=== PATIENT | female | born 1975 | race Caucasian/White ===

== ENCOUNTER 2017-12-12 22:23 | Emergency (ER) | payer OTHER ==
[2017-12-12] MEDS ORDERED: Acetaminophen/HYDROcodone 325-7.5 MG Tab PO ONE (22:52)
--- NOTE | 2017-12-12 22:58 | EDM.PDOC ---
ED HPI GENERAL MEDICAL PROBLEM - General Chief Complaint: ENT Problem Stated Complaint: PT HURT LT EAR Time Seen by Provider: 12/12/17 22:32 - History of Present Illness INITIAL COMMENTS - FREE TEXT/NARRATIVE: HISTORY AND PHYSICAL: History of present illness: The patient is a 42-year-old female who presents with sudden onset of left ear pain that started at approximately 4 PM when she felt her ear popping. The patient says she has had some sinus congestion and has been taking antihistamines for that over the last few days but she has not had a fever nausea vomiting or any ear symptomatology. The patient has a history of eustachian tube dysfunction for which she has seen Dr. Woo at [facility] but she is doing well ever since then. She has not had a sore throat cough nausea vomiting or diarrhea and no recent trauma to the ear or head. She's not had any drainage from the ear and to this evening when she noticed a scant amount of pinkish drainage from the ear starting at 9:00. She has used over-the- counter medications and says the pain is very severe. She denies any recent aggressive cleaning of the ear or any underwater activities or travel The patient says she had many ear infections as a child but none as an adult Review of systems: As per history of present illness and below otherwise all systems reviewed and negative. Past medical history: As per history of present illness and as reviewed below otherwise noncontributory. Surgical history: As per history of present illness and as reviewed below otherwise noncontributory. Social history: No reported history of drug or alcohol abuse. Family history: As per history of present illness and as reviewed below otherwise noncontributory. Physical exam: Gen.: Well-developed well-nourished female who is nontoxic and very exaggerated with exam vital signs have been noted by me HEENT: Atraumatic, normocephalic, pupils reactive, negative for conjunctival pallor or scleral icterus, mucous membranes moist, throat clear, neck supple, nontender, trachea midline. There is some bogginess to the turbinates and only clear nasal drainage but no overt sinus tenderness on palpation. The right TM is slightly dull and there is no evidence of any drainage or erythema and no fluid is appreciated. There is no mastoid tenderness bilaterally and there is no periauricular adenopathy. There is no cervical adenopathy or nuchal rigidity. The left TM is beefy red and edematous and there is no gross perforation seen but due to the significant amount of edema and bulging it is difficult to fully see the outer edges and the patient can tolerate that part of the exam. There is no drainage in external canal and no edema of the external canal. Lungs: Clear to auscultation, breath sounds equal bilaterally, chest nontender. Heart: S1S2, regular rate and rhythm no overt murmurs Abdomen: Soft, nondistended, nontender. NABS Pelvis: Deferred. Genitourinary: Deferred. Rectal: Deferred. Extremities: Atraumatic, negative for cords or calf pain. Neurovascular unremarkable. Neuro: Awake, alert, oriented. Cranial nerves II through XII unremarkable. Cerebellum unremarkable. Motor and sensory unremarkable throughout. Exam nonfocal. Diagnostics: [] Therapeutics: [place] Impression: Otitis media left, severe otalgia left rule out TM perforation Definitive disposition and diagnosis as appropriate pending reevaluation and review of above. - Related Data Allergies Allergy/AdvReac Type Severity Reaction Status Date / Time No Known Allergies Allergy Verified 12/12/17 22:27 Home Meds: Home Meds . [No Known Home Meds] 12/12/17 [History] Past Medical History - Past Health History Medical/Surgical History: Denies Medical/Surgical History Social & Family History - Family History Family Medical History: Noncontributory - Tobacco Use Smoking Status *Q: Current Every Day Smoker Years of Tobacco use: 20 Packs/Tins Daily: 1 - Recreational Drug Use Recreational Drug Use: No ED ROS GENERAL - Review of Systems Review Of Systems: ROS reveals no pertinent complaints other than HPI. ED EXAM, GENERAL - Physical Exam Exam: See Below (See dictation) Course - Vital Signs Last Recorded V/S: Last Vital Signs Temp 37.1 C 12/12/17 22:23 Pulse 83 12/12/17 22:23 Resp 18 12/12/17 22:23 BP 144/76 H 12/12/17 22:23 Pulse Ox 96 12/12/17 22:23 - Orders/Labs/Meds Meds: Medications Discontinued Medications Generic Name Dose Route Start Last Admin Trade Name Freq PRN Reason Stop Dose Admin Hydrocodone Bitart/Acetaminophen 1 tab 12/12/17 22:52 [place] 325-7.5 Mg PO 12/12/17 22:53 ONETIME ONE Departure - Departure Time of Disposition: 22:56 Disposition: Home, Self-Care 01 Condition: Good Clinical Impression: Otalgia of left ear Otitis media Qualifiers: Otitis media type: suppurative Chronicity: acute Laterality: left Recurrence: not specified as recurrent Spontaneous tympanic membrane rupture: without spontaneous rupture Qualified Code(s): H66.002 - Acute suppurative otitis media without spontaneous rupture of ear drum, left ear - Discharge Information Referrals: PCP,None [Primary Care Provider] - Additional Instructions: The following information is given to patients seen in the emergency department who are being discharged to home. This information is to outline your options for follow-up care. We provide all patients seen in our emergency department with a follow-up referral. The need for follow-up, as well as the timing and circumstances, are variable depending upon the specifics of your emergency department visit. If you don't have a primary care physician on staff, we will provide you with a referral. We always advise you to contact your personal physician following an emergency department visit to inform them of the circumstance of the visit and for follow-up with them and/or the need for any referrals to a consulting specialist. The emergency department will also refer you to a specialist when appropriate. This referral assures that you have the opportunity for followup care with a specialist. All of these measure are taken in an effort to provide you with optimal care, which includes your followup. Under all circumstances we always encourage you to contact your private physician who remains a resource for coordinating your care. When calling for followup care, please make the office aware that this follow-up is from your recent emergency room visit. If for any reason you are refused follow-up, please contact the [facility] emergency department at and ask to speak to the emergency department charge nurse. [facility] - ENT [address] [place] [id number] Please call and follow-up with your ENT specialist that you have seen in the past at [facility] or hours, Dr. Sanchez. Please use all medications as prescribed, Augmentin antibiotics and Cortisporin otic suspension. Please also use [place] for pain and small amounts or try to only use when you're at home. Otherwise use [id number] medications for pain. Nothing into your ear until you're finished with the treatment plan and return to ER as needed and as discussed
== END 2017-12-12 23:10 | disposition home or self-care (01) ==
LOC: MW.ED 22:23
DX: H66.002 Acute suppurative otitis media without spontaneous rupture of ear drum, left ear (principal); F17.210 Nicotine dependence, cigarettes, uncomplicated
CPT/HCPCS: 99282; A9270